=== PATIENT | male | born 1980 | race Hispanic/Latino ===

== ENCOUNTER 2018-01-20 16:48 | Emergency (ER) | payer OTHER ==
[2018-01-20 16:59] VITALS: BP 141/78; PULSE 77; RESP 16; TEMP 98.3; O2SAT 97
[2018-01-20] MEDS ORDERED: Sodium Chloride 0.9% 1,000 ML IV STA (17:31)
[2018-01-20 17:56] LABS: BASO # 0.1 K/uL (0.0-0.2); BASO % 0.9 % (0.0-2.0); EOS # 0.3 K/uL (0.0-0.7); EOS % 2.1 % (0.0-4.0); HEMOGLOBIN 15.5 g/dL (12.0-18.0); LYMPH # 1.5 K/uL (1.0-4.3); MEAN CORPUSCULAR HEMOGLOBIN 32.1 pg (27.0-31.0); MEAN CORPUSCULAR HGB CONC 34.5 g/dL (33.0-37.0); MEAN PLATELET VOLUME 7.6 fl (7.2-11.7); MONO # 0.9 K/uL (0.0-0.8); MONO % 7.4 % (0.0-10.0); NEUT # 9.7 K/uL (1.8-7.0); NEUT % 77.6 % (50.0-75.0); RBC 4.82 Mil/uL (4.40-5.90); RED CELL DISTRIBUTION WIDTH 12.6 % (11.5-14.5); WHITE BLOOD COUNT 12.5 K/uL (4.8-10.8)
[2018-01-20 18:05] LABS: INR 1.1
[2018-01-20 18:07] LABS: PARTIAL THROMBOPLASTIN TIME 36.4 Seconds (25.6-37.1)
[2018-01-20 18:19] LABS: ALB/GLOB RATIO 1.3 (1.0-2.1); ALBUMIN 4.3 g/dL (3.5-5.0); ALT/SGPT 42 U/L (21-72); AST/SGOT 29 U/L (17-59); BLOOD UREA NITROGEN 13 mg/dl (9-20); CALCIUM 9.4 mg/dL (8.4-10.2); GFR NON-AFRICAN AMERICAN > 60
[2018-01-20] MEDS ORDERED: Iohexol 300 100 ML IJ ONE (18:32)
[2018-01-20] MEDS ORDERED: Sodium Chloride 0.9% 50 ML IV ONE (18:32)
--- NOTE | 2018-01-20 18:40 | ED PDOC ---
HPI: Abdomen Time Seen by Provider: 01/20/18 17:20 Chief Complaint (Nursing): Abdominal Pain Chief Complaint (Provider): Abdominal Pain History Per: Patient History/Exam Limitations: no limitations Onset/Duration Of Symptoms: Hrs (x15) Current Symptoms Are (Timing): Still Present Additional Complaint(s): 37 y/o male with no significant PMHx presents to the ED for evaluation of abdominal pain, onset earlier this morning. Patient reports pain is located in the RLQ since 3 am and is associated with vomiting, subjective fever and chills. However, patient reports the first episode of vomiting began yesterday. Additionally, patient states he went out socially yesterday and drank heavily. Today, patient reports a lack of appetite. Patient additionally states of having multiple episodes of non-bloody, non-bilious vomiting. Pain and vomiting has been worsening since 3 AM. Patient was seen by PMD who sent him here to the ED for further evaluation. Denies diarrhea, constipation, urinary symptoms, scrotal and back pain. PMD: Kody Noriega Past Medical History Reviewed: Historical Data, Nursing Documentation, Vital Signs Vital Signs: Last Vital Signs Temp 98.3 F 01/20/18 16:56 Pulse 77 01/20/18 16:56 Resp 16 01/20/18 16:56 BP 141/78 01/20/18 16:56 Pulse Ox 97 01/20/18 16:56 - Medical History PMH: No Chronic Diseases - Surgical History Other surgeries: Elective Maxillofacial Surgery - Family History Family History: States: No Known Family Hx - Social History Current smoker - smoking cessation education provided: No Alcohol: Social Drugs: Denies - Home Medications Home Medications: Ambulatory Orders Medication Instructions Recorded Ciprofloxacin [Cipro] 1 tab PO BID #14 tab 01/20/18 Dicyclomine [Bentyl] 20 mg PO QID PRN #20 tab 01/20/18 Ondansetron ODT [Zofran ODT] 1 odt PO Q6 PRN #20 odt 01/20/18 RX: Ibuprofen [Motrin Tab] 600 mg PO Q8 PRN #60 tab 01/20/18 metroNIDAZOLE [Flagyl] 500 mg PO TID #30 tab 01/20/18 - Allergies Allergies/Adverse Reactions: Allergies Allergy/AdvReac Type Severity Reaction Status Date / Time No Known Allergies Allergy Verified 01/20/18 17:23 Review of Systems ROS Statement: Except As Marked, All Systems Reviewed And Found Negative (as per HPI) Constitutional: Positive for: Fever, Chills Gastrointestinal: Positive for: Vomiting, Abdominal Pain. Negative for: Diarrhea, Constipation Genitourinary Male: Negative for: Dysuria, Frequency, Hematuria, Scrotal Pain Musculoskeletal: Negative for: Back Pain Physical Exam - Reviewed Nursing Documentation Reviewed: Yes Vital Signs Reviewed: Yes - Physical Exam Appears: Positive for: In Acute Distress (mild, painful) Head Exam: Positive for: ATRAUMATIC, NORMOCEPHALIC Skin: Positive for: Warm, Dry Eye Exam: Positive for: EOMI, PERRL ENT: Negative for: Pharyngeal Erythema, Tonsillar Exudate Neck: Positive for: Painless ROM, Supple Cardiovascular/Chest: Positive for: Regular Rate, Rhythm. Negative for: Murmur Respiratory: Positive for: Normal Breath Sounds. Negative for: Respiratory Distress Gastrointestinal/Abdominal: Positive for: Soft, Tenderness (RLQ tenderness to palpation.), Other ((+) McBurney's Point Tenderness, (+) Rovsings Sign, (-) SOAD and Obturator's Sign). Negative for: Mass, Distended, Guarding, Rebound Back: Positive for: Normal Inspection. Negative for: Decreased ROM Extremity: Positive for: Normal ROM. Negative for: Deformity Lymphatic: Negative for: Adenopathy Neurologic/Psych: Positive for: Alert. Negative for: Aphasia - Laboratory Results Result Diagrams: 01/20/18 17:00 01/20/18 17:00 - ECG O2 Sat by Pulse Oximetry: 97 (RA) Pulse Ox Interpretation: Normal Medical Decision Making Medical Decision Making: Time: 1744 Impression: RLQ Differentials include but not limited to appendicitis, mesenteric adenitis, colitis and gastroenteritis Plan: -- Type and Screen -- CT Abd/Pelvis IV Contrast Only -- CMP -- ED Urine Dipstick -- CBC with differentials -- PTT -- Prothrombin Time -- Dextrose 5%-0.9% NS 500 ml IV 100 mls/hr -- Sodium Chloride IV 1000 mls/hr -- Toradol 15 mg IVP -- Zofran Inj 4 mg IVP -- Blood Culture -- IV Insertion Time: 1909 CT RESULTS FINDINGS: LOWER THORAX: No visible consolidation, pleural effusion, or pneumothorax. LIVER: Unremarkable. GALLBLADDER AND BILE DUCTS: Unremarkable. PANCREAS: Unremarkable. SPLEEN: Unremarkable. ADRENALS: Unremarkable. KIDNEYS AND URETERS: The kidneys enhance symmetrically. No hydronephrosis or obstructing calculus identified. VASCULATURE: No atherosclerotic calcification or mural thrombus identified. No aortic aneurysm. BOWEL: Stomach is nondistended. Lack of oral contrast limits evaluation for bowel pathology. Bowel loops appear within normal limits of caliber without evidence of obstruction. Wall thickening of the proximal ascending colon and terminal ileum; infectious or inflammatory etiologies. APPENDIX: The appendix is not identified within its entirety. The presumed proximal appendix appears within normal limits of caliber. PERITONEUM: Small pelvic free fluid. No definite free air. LYMPH NODES: Sub cm mesenteric small lymph nodes in adjacent stranding. BLADDER: Under distended urinary bladder. Urachal remnant. REPRODUCTIVE: Prostate calcifications. BONES: Degenerative changes. Vacuum disc phenomenon. OTHER FINDINGS: None. IMPRESSION: Wall thickening of the proximal ascending colon and terminal ileum; suspect colitis; correlate for infectious or inflammatory etiologies. The appendix is not identified within its entirety. The presumed proximal appendix appears within normal limits of caliber. Prominent mesenteric lymph nodes. Mesenteric adenitis is not excluded. Urachal remnant. Patients with a urachal remnant are at increased risk for adenocarcinoma of the bladder. Additional findings as above. DW pt findings. Pt reports pain still present but no worse than initial. DW pt small possibility of appendicitis since appendix not seen completely. Declines further tests. Stable for fu pmd. Scribe Attestation: Documented by Matheus Salinas, acting as a scribe Alexx Woodard MD. Provider Scribe Attestation: All medical record entries made by the Scribe were at my direction and personally dictated by me. I have reviewed the chart and agree that the record accurately reflects my personal performance of the history, physical exam, medical decision making, and the department course for this patient. I have also personally directed, reviewed, and agree with the discharge instructions and disposition. Disposition - Clinical Impression Clinical Impression: Colitis - Disposition Referrals: Kody Noriega MD [Staff Provider] - (FOLLOW UP WITH [facility] IN 24-48 HOURS FOR REEVALUATION.) Disposition: Routine/Home Disposition Time: 23:00 Condition: STABLE Additional Instructions: BLAND DIET WITH HYDRATING FLUIDS RETURN TO ER IMMEDIATELY FOR WORSENING SYMPTOMS (INTRACTABLE VOMITING, WORSENING PAIN, HIGH FEVERS, SEVERE CHILLS, FAINTING OR NEAR FAINTING) Prescriptions: Ciprofloxacin [Cipro] 1 tab PO BID #14 tab Dicyclomine [Bentyl] 20 mg PO QID PRN #20 tab PRN Reason: abdominal pain RX: Ibuprofen [Motrin Tab] 600 mg PO Q8 PRN #60 tab PRN Reason: Pain, Moderate (4-7) metroNIDAZOLE [Flagyl] 500 mg PO TID #30 tab Ondansetron ODT [Zofran ODT] 1 odt PO Q6 PRN #20 odt PRN Reason: Nausea/Vomiting Instructions: Acute Abdomen (Belly Pain), Adult (DC), Nausea and Vomiting, Adult (DC) Forms: [facility] ED School/Work Excuse
--- NOTE | 2018-01-20 19:14 | CT ---
Date of service: 01/20/2018 PROCEDURE: CT Abdomen and Pelvis with contrast HISTORY: RLQ pain COMPARISON: None available TECHNIQUE: Contrast dose: 95 mL Omnipaque 300 Radiation dose: Total exam DLP = 881.65 mGy-cm. This CT exam was performed using one or more of the following dose reduction techniques: Automated exposure control, adjustment of the mA and/or kV according to patient size, and/or use of iterative reconstruction technique. FINDINGS: LOWER THORAX: No visible consolidation, pleural effusion, or pneumothorax. LIVER: Unremarkable. GALLBLADDER AND BILE DUCTS: Unremarkable. PANCREAS: Unremarkable. SPLEEN: Unremarkable. ADRENALS: Unremarkable. KIDNEYS AND URETERS: The kidneys enhance symmetrically. No hydronephrosis or obstructing calculus identified. VASCULATURE: No atherosclerotic calcification or mural thrombus identified. No aortic aneurysm. BOWEL: Stomach is nondistended. Lack of oral contrast limits evaluation for bowel pathology. Bowel loops appear within normal limits of caliber without evidence of obstruction. Wall thickening of the proximal ascending colon and terminal ileum; infectious or inflammatory etiologies. APPENDIX: The appendix is not identified within its entirety. The presumed proximal appendix appears within normal limits of caliber. PERITONEUM: Small pelvic free fluid. No definite free air. LYMPH NODES: Sub cm mesenteric small lymph nodes in adjacent stranding. BLADDER: Under distended urinary bladder. Urachal remnant. REPRODUCTIVE: Prostate calcifications. BONES: Degenerative changes. Vacuum disc phenomenon. OTHER FINDINGS: None. IMPRESSION: Wall thickening of the proximal ascending colon and terminal ileum; suspect colitis; correlate for infectious or inflammatory etiologies. The appendix is not identified within its entirety. The presumed proximal appendix appears within normal limits of caliber. Prominent mesenteric lymph nodes. Mesenteric adenitis is not excluded. Urachal remnant. Patients with a urachal remnant are at increased risk for adenocarcinoma of the bladder. Additional findings as above.
== END 2018-01-20 21:05 | disposition home or self-care (01) ==
LOC: H.ER 16:48
DX: K52.9 Noninfective gastroenteritis and colitis, unspecified (principal); Q64.4 Malformation of urachus
CPT/HCPCS: 74177; 80053; 85025; 85610; 85730; 86850; 86900; 87040; 96374; 96375; 99283; J1885; J2405; J7030; J7042; Q9967